=== PATIENT | male | born 1975 | race Caucasian/White ===

== ENCOUNTER → 2018-01-02 | Outpatient (CLI) | payer OTHER | LOC: FIMAGING 18:06 | PROVIDERS: ATTEND Orthopaedic Surgery | DX: M76.52 Patellar tendinitis, left knee (principal); M22.42 Chondromalacia patellae, left knee ==

== ENCOUNTER → 2018-01-02 | Outpatient (CLI) | payer OTHER | LOC: FIMAGING 18:00 | PROVIDERS: ATTEND Orthopaedic Surgery | DX: M76.51 Patellar tendinitis, right knee (principal); M22.41 Chondromalacia patellae, right knee ==